=== PATIENT | male | born 1965 | race Caucasian/White ===

== ENCOUNTER → 2020-08-12 | Day surgery (SDC) | payer OTHER ==
[~2020-08-12] MED LIST: CEFAZOLIN/SWI 1gm 1 GM/10 ML SYR ONE; GLYCOPYRROLATE 0.2 MG/ML SYR ONE; LIDOCAINE 2% MPF 5 ML VIAL ONE; Ringers Lactate 1,000 ML IV ONE; propofoL 200 MG/20 ML VIAL IV ONE
--- NOTE | 2020-08-12 10:02 | ENDO RPT ---
[address], [address] COLONOSCOPY PROCEDURE REPORT EXAM DATE: 08/12/2020 PATIENT NAME: Cain Marc MR #: [id number] BIRTHDATE: 1965 ATTENDING: Rodriguez Cee DR STATUS: outpatient APPLICATION DESIGNER: Teresa Guerrero RN and Papa Kwan [facility] INDICATIONS: The patient is a 54 yr old Male here for a colonoscopy due to colon cancer screening PROCEDURE PERFORMED: Colonoscopy with biopsy - cold polypectomy MEDICATIONS: Per Anesthesia. ESTIMATED BLOOD LOSS: None CONSENT: The patient understands the risks and benefits of the procedure and understands that these risks include, but are not limited to: sedation, allergic reaction, infection, perforation and/or bleeding. Alternative means of evaluation and treatment include, among others: physical exam, x-rays, and/or surgical intervention. The patient elects to proceed with this endoscopic procedure. DESCRIPTION OF PROCEDURE: During intra-op preparation period all mechanical medical equipment was checked for proper function. Hand hygiene and appropriate measures for infection prevention was taken. Procedure, possible complications, alternatives including, but not limited to possibility of bleeding, perforation, tear, infection, sepsis, need for surgery, need for blood transfusion, were explained to the patient. After the risks, benefits and alternatives of the procedure were thoroughly explained, Informed consent was verified, confirmed and timeout was successfully executed by the treatment team. The patient was placed in the left lateral position. A digital rectal exam was performed and revealed internal hemorrhoids and A digital rectal exam was performed and revealed an enlarged prostate. After appropriate level of anesthesia, the scope was passed. The EC-[id number] ([id number]) endoscope was introduced through the anus and advanced to the cecum, which was identified by both the appendix and ileocecal valve. The quality of the prep was fair. The instrument was then slowly withdrawn as the colon was fully examined. Scope withdrawal time was 9 minutes. COLON FINDINGS: Two small smooth flat polyps with friable surfaces were found in the rectum. A polypectomy was performed with a cold snare and with cold forceps. The resection was complete, the polyp tissue was completely retrieved and sent to histology. Small internal and external hemorrhoids were found. Retroflexed views revealed no abnormalities. The scope was then completely withdrawn from the patient and the procedure terminated. ADVERSE EVENTS: There were no complications. IMPRESSIONS: 1. Two small flat polyps were found in the rectum; polypectomy was performed with a cold snare and with cold forceps 2. Small internal and external hemorrhoids RECOMMENDATIONS: 1. avoid NSAIDS for 2 weeks 2. await biopsy results 3. fiber rich diet 4. follow-up: office 2 week(s) 5. Monitor for any evidence of rectal bleeding. 6. yearly hemoccult starting in 4 years 7. hemorrhoidal hygiene 8. yearly hemoquant 9. increase dietary water RECALL: for Colonoscopy, pending biopsy results. Rodriguez Cee DR eSigned: Rodriguez Cee DR 08/12/2020 10:02 AM cc: CPT CODES: ICD9 CODES: PATIENT NAME: Cain Marc MR#: [id number]
[2020-08-12 10:52] VITALS: BP 151/46; TEMP 97.9; O2SAT 99
== END ==
LOC: PRE 08:27
PROVIDERS: ATTEND Surgery
PROC: 0DBP8ZX Excision of Rectum, Via Natural or Artificial Opening Endoscopic, Diagnostic (ICD-10-PCS; principal; 2020-08-12 09:30)
DX: Z12.11 Encounter for screening for malignant neoplasm of colon (principal); K62.1 Rectal polyp; K64.8 Other hemorrhoids; K64.9 Unspecified hemorrhoids; Z20.828 Contact with and (suspected) exposure to other viral communicable diseases; I10 Essential (primary) hypertension; Z79.01 Long term (current) use of anticoagulants; Z79.899 Other long term (current) drug therapy
CPT/HCPCS: 88305; 45385; U0003; J2704; J0690; J7120